=== PATIENT | male | born 1945 | race Caucasian/White ===

== ENCOUNTER → 2021-02-23 10:48 | Outpatient (CLI) | payer OTHER, SELFPAY ==
--- NOTE | ~2021-02-23 | XR_ITS ---
XR hip RT min 2V DATE: 02/23/2021 11:05 INDICATION: Right hip pain TECHNIQUE: AP and lateral views COMPARISON: None FINDINGS: No fracture or dislocation of the right hip. No bone destruction is detected. The right h ip joint space is well preserved. Femoral artery calcification. IMPRESSION: No significant abnormality Reviewed, dictated and finalized at location A. ON SORTER IMPRESSION: No significant abnormality
--- NOTE | ~2021-02-23 | XR_ITS ---
XR chest 2V DATE: 02/23/2021 11:06 INDICATION: Shortness of breath, cough TECHNIQUE: PA and lateral views COMPARISON: 01/03/2019 CT chest 09/23/2018 portable AP chest FINDINGS: Normal heart size. No hilar or mediastinal enlargement. There is aortic calcification. There is bilateral hyperinflation. No pulmonary infiltrate or consolidation, pulmonary vascular osbaldo estion or pleural effusion or pneumothorax. There is degenerative spurring of the thoracic spine. Diffuse osteopenia. IMPRESSION: Bilateral hyperinflation; no active cardiopulmonary disease Reviewed, dictated and finalized at location A. S DRIVER HELPER
== END ==
PROVIDERS: PCP Family Medicine; Visit Provider Family Medicine
DX: R06.02 Shortness of breath (principal); M25.551 Pain in right hip; R91.8 Other nonspecific abnormal finding of lung field
CPT/HCPCS: 71046; 73502

== ENCOUNTER 2021-10-28 15:24 | Outpatient (CLI) | payer OTHER, SELFPAY ==
--- NOTE | ~2021-10-28 | MR_ITS ---
EXAMINATION: MR hip RT wo con DATE: 10/28/2021 16:27 INDICATION: Right hip pain. TECHNIQUE: Magnetic resonance imaging (MRI) of the right hip was performed without intravenous contra st. COMPARISON: Right hip radiographs 02/23/2021 FINDINGS: Bones/cartilage: There is lumbar dextrocurvature and severe spondylosis. No fracture. There is mild osteoarthritis of the hips. Small [id number] images of right hip demonstrate partial-thickness cartilage loss and ti ny osteophytes. Osteitis pubis is noted. Labrum: There is a tear of the right acetabular labrum. Fluid: There are small bilateral hip joint effusions. There is mild right trochanteric bursitis. Soft tissues: The iliopsoas tendons are normal. There are partial tears of the origins of the hamstring tendons haja aterally. There is mild bilateral gluteus minimus tendinopathy. The gluteus medius tendons are normal . IMPRESSION: 1. Mild osteoarthritis of the hips. 2. Small bilateral hip joint effusions. 3. Mild right trochanteric bursitis. 4. Severe lumbar spondylosis. 5. Partial tears of the hamstring origins bilaterally. Reviewed, dictated and finalized at location A.
== END 2021-10-28 15:25 | disposition home or self-care (01) ==
PROVIDERS: PCP Family Medicine; Visit Provider Family Medicine
DX: R53.1 Weakness (principal); M16.0 Bilateral primary osteoarthritis of hip; M25.451 Effusion, right hip; M25.452 Effusion, left hip; M47.896 Other spondylosis, lumbar region; M70.61 Trochanteric bursitis, right hip
CPT/HCPCS: 73721

== ENCOUNTER 2022-10-28 10:27 | Outpatient (CLI) | payer OTHER, SELFPAY ==
[2022-10-28 13:32] LABS: Uric Acid 4.4 mg/dL (3.5-8.5)
== END 2022-10-28 10:28 | disposition home or self-care (01) ==
PROVIDERS: PCP Family Medicine; Visit Provider Nurse Practitioner Family
DX: M10.9 Gout, unspecified (principal)
CPT/HCPCS: 36415; 84550

== ENCOUNTER → 2022-11-07 14:07 | Outpatient (CLI) | payer OTHER, SELFPAY ==
--- NOTE | ~2022-11-07 | XR_ITS ---
EXAMINATION: XR foot RT min 3V DATE: 11/07/2022 14:22 INDICATION: Pain at right first metatarsophalangeal joint. TECHNIQUE: 4 views of right foot were obtained. COMPARISON: None. FINDINGS: Bone alignment is normal. No fracture. There is severe osteoarthritis of first metatarsopha langeal joint and mild osteoarthritis of some of the interphalangeal joints. There is an enthesophyte at plantar aspect of calcaneal tuberosity. IMPRESSION: 1. Polyarticular osteoarthritis. Reviewed, dictated and finalized at location E.
== END ==
PROVIDERS: PCP Family Medicine; Visit Provider Family Medicine
DX: M19.071 Primary osteoarthritis, right ankle and foot (principal)
CPT/HCPCS: 73630

== ENCOUNTER 2022-12-05 10:11 | Outpatient (CLI) | payer OTHER, SELFPAY ==
[2022-12-05 10:40] LABS: Alanine Aminotransferase 42 U/L (6-50); Aspartate Amino Transferase 33 U/L (17-59)
== END 2022-12-05 10:12 | disposition home or self-care (01) ==
PROVIDERS: PCP Family Medicine; Visit Provider Podiatrist Foot & Ankle Surgery
DX: B35.1 Tinea unguium (principal)
CPT/HCPCS: 36415; 84450; 84460

== ENCOUNTER 2024-04-23 11:43 | Emergency (ER) | payer OTHER, SELFPAY ==
--- NOTE | ~2024-04-23 | XR_ITS ---
EXAMINATION: XR chest 2V DATE: 04/23/2024 14:28 INDICATION: Shortness of breath. TECHNIQUE: frontal and lateral views of the chest were obtained. COMPARISON: Chest radiograph dated 02/23/2021 FINDINGS: Surgical clip along the chronically eventrated right hemidiaphragm. There are increased interstitial opacities at the bilateral lung bases which could represent atelectasis, pulmonary edema or pneumonia in the acute setting versus more chronic interstitial lung disease. No pleural effusion or pneumotho rax. Heart size is normal. Moderate thoracic spondylosis with chronic mild anterior wedging of a coup le mid thoracic vertebral bodies. IMPRESSION: 1. Increased interstitial opacities at the bilateral lung bases which could represent atelectasis, mi ld pulmonary edema or pneumonia. Reviewed, dictated and finalized at location B. [employer] IMPRESSION: 1. Increased interstitial opacities at the bilateral lung bases which could rep resent atelectasis, mild pulmonary edema or pneumonia.
[2024-04-23 11:50] VITALS: BP 117/77; PULSE 84; RESP 20; TEMP 36.8; O2SAT 95
--- NOTE | 2024-04-23 11:59 | ECG_ITS ---
Test Date: 2024-04-23 12:03:51 Measurements Intervals [place] Rate: 84 P: 57 RI: 150 QRS: 28 QRSD: 108 T: 73 QT: 354 QTc: 419 Interpretive Statements SINUS RHYTHM No previous ECG available for comparison Electronically Signed On 04-24-2024 11:01:19 MANAGER BUSINESS CONTINUITY by Lio Alexis M.D.
[2024-04-23 12:18] LABS: Basophils Percent Auto 0.2 % (0.2-1.2); Hematocrit 41.1 % (42.0-52.0); Hemoglobin 13.4 g/dL (14.0-18.0); Immature Granulocyte Percent A 0.6 % (0-0.5); Lymphocytes Absolute Auto 1.29 K/mm3 (0.9-3.2); Lymphocytes Percent Auto 7.4 % (18.3-44.2); Mean Corpuscular HGB Conc 32.6 g/dl (32-36); Mean Corpuscular Hemoglobin 29.9 pg (26-34); Mean Corpuscular Volume 91.7 fl (80-100); Mean Platelet Volume 9.7 fl (7.4-10.4); Monocytes Absolute Auto 2.2 K/mm3 (0.1-0.6); Monocytes Percent Auto 12.8 % (2.6-8.5); Neutrophils Absolute Auto 13.9 K/mm3 (1.3-6.7); Platelet Count Result 364 k/mm3 (150-375); Red Blood Count 4.48 M/mm3 (4.6-6.20); Red Cell Distribution Width 14.6 % (11.5-14.5); White Blood Count 17.5 K/mm3 (4.5-10.0)
[2024-04-23 12:23] LABS: Add Urine Microscopic? YES; Appearance Urine Clear (Clear); Bacteria Urine None Seen /hpf; Bilirubin Urine Negative (Negative); Blood Urine Negative (Negative); Color Urine Dark Yellow (Yellow); Glucose Urine UA Negative (Negative); Ketones Urine Trace mg/dL (Negative); Leukocyte Esterase Ur Negative LEU/UL (Negative); Nitrate Urine Negative (Negative); Non Pathogenic Casts 0-2; Protein Urine 1+ mg/dL (Negative); RBC Urine 0-2 /hpf (0-2); Specific Grav Ur 1.025 (1.001-1.035); Squamous Epithelial Cell Urine None Seen /hpf (Few); WBC Urine 0-5 /hpf (0-3); pH Urine 6.5 (5.0-9.0)
[2024-04-23 12:32] LABS: Alanine Aminotransferase 23 U/L (6-50); Alkaline Phosphatase 158 U/L (38-126); Anion Gap 14 mmol/L (4-12); Aspartate Amino Transferase 20 U/L (17-59); Bilirubin,Total 0.7 mg/dL (0.2-1.3); Blood Urea Nitrogen 13 mg/dL (9-20); Calcium 9.4 mg/dL (8.4-10.2); Carbon Dioxide 23 mmol/L (22-30); Chloride 101 mmol/L (98-107); Estimated CRCL calculation 78 ml/min; Estimated Glomerular Filt Rate > 60; Glucose 118 mg/dL (65-110); Potassium 3.8 mmol/L (3.4-5.0); Sodium 138 mmol/L (137-145)
[2024-04-23] MEDS: predniSONE 20 MG TABLET 40 MG PO (12:40)
[2024-04-23] MEDS: ALBUTEROL SULFATE NEB 2.5 MG/3 ML INH 15 MG INHALATION (12:42)
[2024-04-23] MEDS: IPRATROPIUM BR 0.02% INH SOLN 0.5 MG/2.5 ML VIAL 1 MG INHALATION (12:43)
[2024-04-23 12:45] VITALS: PULSE 84; RESP 15
[2024-04-23 12:53] LABS: Influenza A QL RT-PCR Negative (Negative); Influenza B QL RT-PCR Negative (Negative); RSV RNA, RT-PCR Negative (Negative); SARS-CoV-2 RNA PCR Negative (Negative)
--- NOTE | 2024-04-23 13:10 | ED_ITS ---
HPI - URI/Sore Throat General Chief Complaint: Upper Respiratory Infection Stated Complaint: i'm sick x 3 weeks Time Seen by Provider: 04/23/24 11:58 History of Present Illness HPI Narrative: Patient has been feeling sick for last few weeks, he does have a history of COPD, hypertension, diabetes, has been using his inhaler at home, his family member has also been sick. Mostly shortness of breath with generalized fatigue Related Data Allergies Allergy/AdvReac Type Severity Reaction Status Date / Time No Known Allergies Allergy Verified 04/23/24 11:54 Review of Systems 2 Review of Systems: All systems reviewed & are unremarkable except as noted in HPI and below PMFSH Past Medical History Medical History Former smoker, stopped smoking in distant past Dysuria Skin infection Uncomplicated alcohol dependence Toxic hepatitis Nicotine dependence Hyperlipidemia Essential hypertension Type 2 diabetes mellitus Derangement of knee Alcohol dependence Surgical History Surgical History H/O umbilical hernia repair Status post total left knee replacement Family History Family History Father Family history of malignant neoplasm Sibling Acute myocardial infarction Social History Social History Smoking status: Former smoker Smoking end date: 02/21/12 Alcohol intake: current Lack of Transportation: No Lack of Food: Never True Current Housing: I Have Housing Concerned About Future Housing: No Difficulty Paying Gas/Electric Bills: No Difficulty Paying for Meds: No Currently Unemployed: No Education: High School Diploma/GED Difficulty w/ Childcare or Family Care: No Exam 2 Narrative: EXAMINATION OF ORGAN SYSTEMS/BODY AREAS: Constitutional: Vital signs per nursing GENERAL:[No acute distress, non-toxic appearing.] HEAD: Normal with no signs of head trauma. EYES: EOMI, conjunctiva normal ENT: Hearing grossly intact LUNGS: Nonlabored breathing. Wheezing all lung [place] HEART: [Regular rate and rhythm] ABD: [Soft], [nontender to palpation] EXT: Normal range of motion SKIN: [No rashes or lesions.] NEURO: [Alert and oriented x 3. No gross focal sensory or strength deficits.] PSYCH: Normal affect Course Vital Signs Vital signs: Vital Signs Temperature 98.2 F 04/23/24 11:50 Pulse Rate 84 04/23/24 11:50 Respiratory Rate 20 04/23/24 11:50 Blood Pressure 117/77 04/23/24 11:50 Pulse Oximetry 95 04/23/24 11:50 Oxygen Delivery Room Air 04/23/24 11:50 Temperature 98.2 F 04/23/24 11:50 Pulse Rate 90 04/23/24 15:16 Respiratory Rate 20 04/23/24 15:16 Blood Pressure 117/77 04/23/24 11:50 Pulse Oximetry 95 04/23/24 15:16 Oxygen Delivery Room Air 04/23/24 12:14 MDM - URI/Sore Throat MDM Narrative Medical decision making narrative: 1) Differential diagnosis: Viral infection, pneumonia, COPD exacerbation 2) Comorbidities: COPD, hypertension, diabetes, lung cancer 3) External notes reviewed: PCP notes 4) History sources independently obtained from: Family member at bedside 5) Discussion of management with: 6) Independent interpretation of: EKG shows normal sinus rhythm rate 84, normal ND, QRS, QTC, normal axis, no ST elevations or depressions or obvious signs of acute arrhythmia or ischemia Chest x-ray was some slight consolidations right lung base 7) Diagnostic tests or therapies considered but not ordered: 8) Social determinants of health: 9) Shared decision makin-year-old presenting with some shortness of breath, cough, generalized fatigue; infectious workup initiated, he does have elevated wbc's, virus was negative, chest x-ray showing possible pneumonia, he is given breathing treatments and on re-evaluation states he feels much better. Repeat vital signs improved. Breathing improved. I did offer admission at this time he would like to go home. Started on antibiotics and given strict precautions, follow-up to his PCP. Family member at bedside agreeable to plan also Lab Data 04/23/24 12:11 04/23/24 12:11 Labs: Lab Results 04/23/24 Range/Units 12:11 WBC 17.5 H (4.5-10.0) K/mm3 RBC 4.48 L (4.6-6.20) M/mm3 Hgb 13.4 L (14.0-18.0) g/dL Hct 41.1 L (42.0-52.0) % MCV 91.7 (80-100) fl MCH 29.9 (26-34) pg MCHC 32.6 (32-36) g/dl RDW 14.6 H (11.5-14.5) % Plt Count 364 (150-375) k/mm3 MPV 9.7 (7.4-10.4) fl Immature Gran % (Auto) 0.6 H (0-0.5) % Neut % (Auto) 79.0 H (45.5-73.1) % Lymph % (Auto) 7.4 L (18.3-44.2) % [place] % (Auto) 12.8 H (2.6-8.5) % Eos % (Auto) 0.0 (0-4.4) % Baso % (Auto) 0.2 (0.2-1.2) % Lymph # (Auto) 1.29 (0.9-3.2) K/mm3 [place] # (Auto) 2.2 H (0.1-0.6) K/mm3 Eos # (Auto) 0.0 (0-0.3) K/mm3 Baso # (Auto) 0.0 (0.0-0.1) K/mm3 Abs Immat Gran (auto) 0.10 H (0.00-0.031) K/mm3 Absolute Neuts (auto) 13.9 H (1.3-6.7) K/mm3 Absolute Nucleated RBC 0.000 (0.0-0.012) K/mm3 Nucleated RBC % 0.0 (0.0-0.2) % Sodium 138 (137-145) mmol/L Potassium 3.8 (3.4-5.0) mmol/L Chloride 101 (98-107) mmol/L Carbon Dioxide 23 (22-30) mmol/L Anion Gap 14 H (4-12) mmol/L BUN 13 (9-20) mg/dL Creatinine 0.65 L (0.7-1.3) mg/dL Estim Creat Clear Calc 78 ml/min Estimated GFR > 60 (59 - ) Glucose 118 H (65-110) mg/dL Calcium 9.4 (8.4-10.2) mg/dL Total Bilirubin 0.7 (0.2-1.3) mg/dL AST 20 (17-59) U/L ALT 23 (6-50) U/L Alkaline Phosphatase 158 H (38-126) U/L Total Protein 8.0 (6.3-8.2) g/dL Albumin 4.0 (3.5-5.1) g/dL Urine Color Dark yellow (Yellow) Urine Appearance Clear (Clear) Urine pH 6.5 (5.0-9.0) Ur Specific [place] 1.025 (1.001-1.035) Urine Protein 1+ H (Negative) mg/dL Urine Glucose (UA) Negative (Negative) mg/dL Urine Ketones Trace H (Negative) mg/dL Ur Blood (Man) Negative (Negative) Urine Nitrate Negative (Negative) Urine Bilirubin Negative (Negative) Urine Urobilinogen 1.0 (<2.0) mg/dL Leukocyte Esterase Rfl Negative (Negative) AZEB/UL Urine RBC 0-2 (0-2) /hpf Urine WBC 0-5 (0-3) /hpf Ur Squamous Epith Cells None seen (Few) /hpf Urine Bacteria None seen /hpf Urine Casts 0-2 Influenza A (RT-PCR) Negative (Negative) Influenza B (RT-PCR) Negative (Negative) RSV (RT-PCR) Negative (Negative) SARS-CoV-2 RNA (RT-PCR) Negative (Negative) Discharge Plan Discharge Clinical Impression: Acute bronchitis, Pneumonia Patient Disposition: Home, Self-Care Condition: Stable Instructions: Antibiotic Form, Acute Bronchitis (ED) Additional Instructions: Please take medications as prescribed, and follow up with your doctor; please come back to the hospital if your symptoms do not improve or if they get worse. Patient Language: Barbadian Prescriptions: New doxycycline hyclate 100 mg capsule 100 mg PO Q12H 7 Days Qty: 10 0RF albuterol sulfate 90 mcg/actuation HFA aerosol inhaler 2 puff inhalation QID PRN (Reason: shortness of breath or wheezing) Qty: 8.5 0RF amoxicillin-pot clavulanate 875-125 mg tablet 1 tablet PO Q12H Qty: 10 0RF No Action insulin glargine [Lantus Solostar U-100 Insulin] 100 unit/mL (3 mL) insulin pen 18 unit SUB-Q DAILY Qty: 15 3RF atorvastatin 40 mg tablet 40 mg PO DAILY Qty: 90 2RF lisinopril 10 mg tablet 10 mg PO DAILY Qty: 90 2RF metformin 1,000 mg tablet 1,000 mg PO BID Qty: 180 2RF metoprolol tartrate 50 mg tablet 50 mg PO DAILY Qty: 90 2RF (DME) pen needle, diabetic [1st Tier Unifine Pentips] 32 gauge x / needle See Rx Instructions .ROUTE .MEDSUPPLY Qty: 100 2RF Rx Instructions: Use 1 needle with Flexpen to inject insulin every evening pioglitazone 30 mg tablet 30 mg PO DAILY Qty: 90 2RF Rx Instructions: take 1 tablet by mouth once daily (DME) Contour Next Test Strips Strip See Rx Instructions .ROUTE .MEDSUPPLY Qty: 100 4RF Rx Instructions: Use 1 test strip to check fasting glucose daily albuterol sulfate [ProAir HFA] 90 mcg/actuation HFA aerosol inhaler 2 puff INHALATION Q4H Qty: 25.5 4RF fluticasone propion-salmeterol [Wixela Inhub] 250-50 mcg/dose blister with device 1 inh inhalation BID Qty: 60 5RF cholecalciferol (vitamin D3) 100 mcg (4,000 unit) tablet 100 mcg PO DAILY Qty: 90 2RF Follow-up/Referrals: Josué Cary MD [Primary Care Provider] - 2 Days
--- OUTSIDE RECORDS SUMMARY | 2024-04-23 13:36 | XMS_ITS | Clinical Summary ---
Author Organization [facility] Address [address] [address] Care Team Providers Care News Specialist Name Role Phone Lonnie Huerta Primary Care Provider [phone] Source Comments [facility],non-owned Affiliates and Associated Physician Practices is amultiple site organization consisting of ambulatory clinics and hospital sitesin [place], [place], [place] and [place]. This disclosure is being madepursuant to the Care Everywhere program and may not contain all information available regarding this patient. Last updated 17.[facility] Allergies No known active allergies Medications * Be aware that medications may not be up to date on this document. Alwaysverify current medications with the patient. Medication Sig Dispensed Refills Start Date End Date Status metFORMIN (GLUCOPHAGE) 1000 MG tablet Take 1 (one) tablet by mouth 2 times daily with morning and evening meal Active pioglitazone (ACTOS) 30 MG tablet Take 1 (one) tablet by mouth once daily Active lisinopril (PRINIVIL; ZESTRIL) 10 MG tablet Take 1 (one) tablet by mouth once daily Active METOPROLOL-HCTZ 50-25 MG Take by mouth once daily Active atorvastatin (LIPITOR) 40 MG tablet Take 1 (one) tablet by mouth at bedtime Active [place]-3 Fatty Acids (FISH OIL) 1200 MG Take by mouth 2 times daily Active vitamin C (ASCORBIC ACID) 1000 MG tablet Take 1 (one) tablet by mouth once daily Active Cyanocobalamin (VITAMIN B-12) 5000 MCG TBDP Take by mouth once daily Active LANTUS SOLOSTAR pen 18 (eighteen) Units at bedtime Now called Semglee 05/31/2019 Active albuterol HFA (PROVENTIL;VENTOLIN;[place] OAIR) 108 (90 Base) MCG/ACT inhaler every 6 hours as needed 11/25/2019 Active fluticasone-salmeterol (ADVAIR/WIXELA) 250-50 MCG/DOSE inhaler Inhale 1 (one) puff by mouth 2 times daily 60 Each 5 04/14/2021 Active ciclopirox (PENLAC) 8 % solution as needed 09/09/2021 Active Acetaminophen (TYLENOL ARTHRITIS PAIN PO) Take by mouth 2 times daily Active Active Problems Problem Noted Date Diagnosed Date COPD with exacerbation 05/10/2019 Malignant neoplasm of lower lobe of right lung 0 09/25/2018 Former smoker, stopped smoking in distant past 0 08/01/2018 Essential hypertension 03/03/2015 Other hyperlipidemia 03/03/2015 Diabetes mellitus, type 2 03/03/2015 Immunizations Name Administration Dates Next Due City Voice primary monoval ent 12+ yr 0.3mL Purple cap 11/15/2020,08/20/2020,04/20/2020, 021 INFLUENZA VACCINE 10/30/2020,10/30/2017 INFLUENZA VACCINE, HIGH-DOSE , QUADR. (FLUZONE HIGH-DOSE QUADRIVALENT; 65Y+), 0.7 ML (HD-IIV4) 10/17/2019 INFLUENZA VACCINE, QUADR. (A FLURIA, FLUZONE QUADRIVALENT; 6MO+) (IIV4) 11/05/2018 Social History Tobacco Use Types Packs/Day Years Used Date Smoking Tobacco: Former Smokeless Tobacco: Never Tobacco Cessation:Counseling Given: No Alcohol Use Standard Drinks/Week Comments Yes 0 (1 standard drink = 0.6 oz pur e alcohol) AUDIT-C Answer Date Recorded Frequency of Alcohol Consumption Monthly or less 05/10/2019 Average Number of Drinks 1 or 2 020 Frequency of Binge Drinking Not on file 04/21 Sex and Gender Information Value Date Recorded Sex Assigned at Male 04/02/2020 9:51 AM SOFTWARE DEVELOPMENT ADVISOR Gender Identity Male 04/02/2020 9:51 AM SOFTWARE DEVELOPMENT ADVISOR Sexual Orientation Straight 04/02/2020 9: 51 AM SOFTWARE DEVELOPMENT ADVISOR Last Filed Vital Signs Vital Sign Reading Time Taken Comments Blood Pressure 147/85 09/28/2023 2:29 PM CDT Pulse 64 09/28/2023 2:29 PM CDT Temperature 36.3 C (97.3 F) 09/28/2023 2:29 PM CDT Respiratory Rate 18 09/28/2023 2:29 PM CDT Oxygen Saturation 96% 09/28/2023 2:29 PM CDT Inhaled Oxygen Concentration - - Weight 87.7 kg (193 lb 6.4 oz) 09/28/2023 2:29 P M CDT Height 175.3 cm (5' 9 ) 05/10/2019 10:07 AM CDT Body Mass Index 28.56 05/10/2019 10:07 AM CDT Plan of Treatment Upcoming Encounters Date Type Department Care Team (Late st Contact Info) Description 06/26/2024 1:00 PM CDT Appointment [facility] CAT SCAN [address] [place] [address] Branden Navas MD [address] [place] [phone] 07/01/2024 1:00 PM CDT Appointment [facility] RAD ONC [address] [place] [address] Branden Navas MD [facility] [place], [place] [phone] Health Maintenance Due Date Last Done Comments DIABETES-SERUM CREATININE 12/15/1961 DTAP/TDAP/TD VACCINES (1 - Tdap) 12/15/1962 PNEUMOCOCCAL VACCINE 50+ (1 of 2 - PCV) 12/15/1962 ZOSTER VACCINE (1 of 2) 12/15/1993 Respiratory Syncytial Virus (RSV) Vaccine Pt: or over 60 yrs (1 - 1-dose 75+ series) 12/15/2018 DIABETES RETINOPATHY SCREENING 05/10/2019 DIABETES-FOOT EXAM WITH MONOFILAMENT 05/10/2019 DIABETES-HGB A1C 05/10/2019 COVID-19 VACCINE ( season) 2023 05/20/2021, 11/15/2020, 08/20/2020, Additional history exists INFLUENZA VACCINE (#1) 2023 , 10/17/2019, 11/05/2018, Additional history exists DEPRESSION SCREENING 02/21/2024 DIABETES - URINE PROTEIN SCREENING 02/21/2024 MEDICARE AWV CALENDAR YEAR 2024 HEPATITIS B VACCINE Aged Out No longe r eligible based on patient's age to complete this topic HIB VACCINE Aged Out No longer eligi ble based on patient's age to complete this topic HPV VACCINE Aged Out No longer eligi ble based on patient's age to complete this topic MENINGOCOCCAL (Group B) VACCINE Aged Out No longer eligible based on patient's age to complete this topic MENINGOCOCCAL VACCINE Aged Out No gonzalo hollis eligible based on patient's age to complete this topic Medical Devices Implanted Type Area Indian Trader Device Identifier Shelf Expiration Date Model / Serial / Lot Pointcoil Implanted:Qty: 1 on 04/17/2019 at [facility] [id number] / / Care Teams News Specialist Relationship Specialty Start Date End Date Lonnie Huerta DO [address] [place] [phone] PCP - General Family Medicine 09/13/22
--- OUTSIDE RECORDS SUMMARY | 2024-04-23 13:36 | XMS_ITS | Referral Summary ---
Author Organization [facility] Address [address] [place] [address] Care Team Providers Care Facilities Plant Engineer Name Role Phone Lonnie Huerta Primary Care Provider [phone] Source Comments [facility],non-owned Affiliates and Associated Physician Practices is amultiple site organization consisting of ambulatory clinics and hospital sitesin [place], [place], [place] and [place]. This disclosure is being madepursuant to the Care Everywhere program and may not contain all information available regarding this patient. Last updated 17.[facility] Allergies No known active allergies Medications * [...] (one) tablet by mouth at bedtime Active [place]-3 Fatty Acids (FISH OIL) 1200 MG Take by mouth 2 times daily Active vitamin C (ASCORBIC ACID) 1000 MG tablet Take 1 (one) tablet by mouth once daily Active Cyanocobalamin (VITAMIN B-12) 5000 MCG TBDP Take by mouth once daily Active LANTUS SOLOSTAR pen 18 (eighteen) Units at bedtime Now called Semglee 05/31/2019 Active albuterol HFA (PROVENTIL;VENTOLIN;[place] OAIR) 108 (90 Base) MCG/ACT inhaler every [...] 03/03/2015 Immunizations Name Administration Dates Next Due [employer] primary monoval ent 12+ yr 0.3mL Purple [...] Sex Assigned at Male 04/02/2020 9:51 AM ELECTRIC MOTOR ANALYST Gender Identity Male 04/02/2020 9:51 AM ELECTRIC MOTOR ANALYST Sexual Orientation Straight 04/02/2020 9: 51 AM ELECTRIC MOTOR ANALYST Last Filed Vital Signs Vital Sign Reading [...] Info) Description 06/26/2024 1:00 PM CDT Appointment [facility] CAT SCAN [address] [place] [address] Branden Navas MD [address] [place] [phone] 07/01/2024 1:00 PM CDT Appointment [facility] RAD ONC [address] [place] [address] Branden Navas MD [facility] [place], [place] [phone] Medical Devices Implanted Type Area Director Of Residential Services Device Identifier Shelf Expiration Date Model / Serial / Lot Pointcoil Implanted:Qty: 1 on 04/17/2019 at [facility] [id number] / / Care Teams Facilities Plant Engineer Relationship Specialty Start Date End Date Lonnie Huerta DO [address] [place] [phone] PCP - General Family Medicine 09/13/22
--- OUTSIDE RECORDS SUMMARY | 2024-04-23 13:36 | XMS_ITS | Encounter Summary ---
Author Organization [facility] Address [address] [place] [address] Care Team Providers Care Hot Metal Mixer Operator Name Role Phone Emerson Jaramillo MD Primary Care Provider [phone] Lonnie Huerta DO Primary Care Provider [phone] Encounter Details Date Type Department Care Team (Late st Contact Info) Description 03/11/2019 Telephone [facility] [address] [place] [address] Tommy Corrigan MD [address] OF PULMONARY/[place] [address] Social History Tobacco Use Types Packs/Day Years Used Date Smoking Tobacco: Never Assessed Sex and Gender Information Value Date Recorded Sex Assigned at Male 04/02/2020 9:51 AM GAS LINE REPAIRER Gender Identity Male 04/02/2020 9:51 AM GAS LINE REPAIRER Sexual Orientation Straight 04/02/2020 9: 51 AM GAS LINE REPAIRER documented as of this encounter Miscellaneous Notes * Telephone Encounter - Shanta Epps - 03/11/2019 10:00 AM CST Current Provider name:Dr. Tommy Corrigan Reason for call: Mr. Willis missed 03/08/2019 appt due to inclement weather. He has lung nodules and is concerne. Would really like earlier appt that schedule 04/12/2019 at 9AM. Please call if possible. Patient Call Back number: [phone] LINE REPAIRER documented in this encounter Plan of Treatment Upcoming Encounters Date Type Department Care Team (Late st Contact Info) Description 06/26/2024 1:00 PM CDT Appointment [facility] CAT SCAN [address] [place] [address] Branden Navas MD [address] [place], [place] [phone] 07/01/2024 1:00 PM CDT Appointment [facility] RAD ONC [address] [place] [address] Branden Navas MD [facility] [place], [place] [phone] documented as of this encounter Visit Diagnoses Not on filedocumented in this encounter Care Teams Hot Metal Mixer Operator Relationship Specialty Start Date End Date Emerson Jaramillo MD [address] [place] [address] PCP - General 02/22/19 09/12/22 Lonnie Huerta DO [address] [place] [address] PCP - General Family Medicine 09/13/22 documented as of this encounter
--- OUTSIDE RECORDS SUMMARY | 2024-04-23 13:37 | XMS_ITS ---
Author Organization [facility] Address [address] [place] [address] Care Team Providers Care Presto Log Operator Name Role Phone Lonnie Huerta Primary Care Provider [phone] Active Problems Problem Noted Date Diagnosed Date COPD with exacerbation 05/10/2019 Malignant neoplasm of lower lobe of right lung 0 09/25/2018 Former smoker, stopped smoking in distant past 0 08/01/2018 Essential hypertension 03/03/2015 Other hyperlipidemia 03/03/2015 Diabetes mellitus, type 2 03/03/2015 Current Oncology Plans No current plan information found. Past Plans No past plan information found. Radiation Treatments * No radiation treatments are documented for this patient in [facility]. Treatments may have been administered in another system. Lifetime Dose Tracking * Chemical Lifetime Dose Automatic Entry Manual Entr y Dose Length Product 3,478 mGy-cm 3,478 mGy-cm 0 mGy-cm
--- OUTSIDE RECORDS SUMMARY | 2024-04-23 13:37 | XMS_ITS | Patient Health Summary ---
Author Organization [facility] Address [address] [place] [address] Care Team Providers Care Betting Clerk Name Role Phone Lonnie Huerta Primary Care Provider [phone] Note from [facility] [place],non-owned Affiliates and Associated Physician Practices is amultiple site organization consisting of ambulatory clinics and hospital sitesin [place], [place], [place] and [place]. This disclosure is being madepursuant to the Care Everywhere program and may not contain all information available regarding this patient. Last updated 17.[facility] Allergies No known active allergies Medications * Be aware that medications may not be up to date on this document. Alwaysverify current medications with the patient. * metFORMIN (GLUCOPHAGE) 1000 MG tablet Take 1 (one) tablet by mouth 2 times daily with morning and evening meal * pioglitazone (ACTOS) 30 MG tablet Take 1 (one) tablet by mouth once daily * lisinopril (PRINIVIL; ZESTRIL) 10 MG tablet Take 1 (one) tablet by mouth once daily * METOPROLOL-HCTZ 50-25 MG Take by mouth once daily * atorvastatin (LIPITOR) 40 MG tablet Take 1 (one) tablet by mouth at bedtime * Rosie-3 Fatty Acids (FISH OIL) 1200 MG Take by mouth 2 times daily * vitamin C (ASCORBIC ACID) 1000 MG tablet Take 1 (one) tablet by mouth once daily * Cyanocobalamin (VITAMIN B-12) 5000 MCG TBDP Take by mouth once daily * LANTUS SOLOSTAR pen(Started 05/31/2019) 18 (eighteen) Units at bedtime Now called Semglee * albuterol HFA (PROVENTIL;VENTOLIN;PROAIR) 108 (90 Base) MCG/ACT inhaler (Started 11/25/2019) every 6 hours as needed * fluticasone-salmeterol (ADVAIR/WIXELA) 250-50 MCG/DOSE inhaler(Started 04/14/2021) Inhale 1 (one) puff by mouth 2 times daily 5 refills by 04/14/2022 * ciclopirox (PENLAC) 8 % solution(Started 09/09/2021) as needed * Acetaminophen (TYLENOL ARTHRITIS PAIN PO) Take by mouth 2 times daily Active Problems Problem Noted Date Diagnosed Date COPD with exacerbation 05/10/2019 Malignant neoplasm of lower lobe of right lung 0 09/25/2018 Former smoker, stopped smoking in distant past 0 08/01/2018 Essential hypertension 03/03/2015 Other hyperlipidemia 03/03/2015 Diabetes mellitus, type 2 03/03/2015 Immunizations * [employer] primary monovalent 12+ yr 0.3mL Purple cap(Given 11/15/2020, 08/20/2020, 04/20/2020, 04/02/2020) * INFLUENZA VACCINE(Given 10/30/2020, 10/30/2017) * INFLUENZA VACCINE, HIGH-DOSE, QUADR. (FLUZONE HIGH-DOSE QUADRIVALENT; 65Y+), 0.7 ML (HD-IIV4)(Given 10/17/2019) * INFLUENZA VACCINE, QUADR. 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 [id number] / / Procedures * CT CHEST WO CONTRAST(Performed 09/19/2023) Performed for Malignant neoplasm of lower lobe of right lung (HCC) * CT CHEST WO CONTRAST(Performed 03/23/2023) Performed for Malignant neoplasm of lower lobe of right lung (HCC) * CT CHEST WO CONTRAST(Performed 09/12/2022) Performed for Malignant neoplasm of lower lobe of right lung (HCC) * CT CHEST WO CONTRAST(Performed 09/09/2021) Performed for Malignant neoplasm of lower lobe of right lung (HCC) * CT CHEST WO CONTRAST(Performed 03/11/2021) Performed for Malignant neoplasm of lower lobe of right lung (HCC) * CT CHEST WO CONTRAST(Performed 09/01/2020) Performed for Malignant neoplasm of lower lobe of right lung (HCC) * CT CHEST WO CONTRAST(Performed 04/03/2020) Performed for Malignant neoplasm of lower lobe of right lung (HCC) * CT CHEST WO CONTRAST(Performed 12/03/2019) Performed for Malignant neoplasm of lower lobe of right lung (HCC) * PFT CARDIOPULMONARY EXERCISE TEST-CPET(Performed 05/09/2019) Performed for Malignant neoplasm of lower lobe of right lung (HCC) * BLOOD GASES ART - PFT(Performed 05/02/2019) Performed for Malignant neoplasm of lower lobe of right lung (HCC) * SHUTTLE WALK TEST(Performed 05/02/2019) Performed for Malignant neoplasm of lower lobe of right lung (HCC) * COMPLETE PFT W/WO BRONCHODILATOR(Performed 05/02/2019) Performed for Malignant neoplasm of lower lobe of right lung (HCC) * XR CHEST 2VW INSPIR EXPIRATION(Performed 04/17/2019) Performed for Lung mass, Lung nodule * XR CHEST 2VW INSPIR EXPIRATION(Performed 04/17/2019) Performed for Lung mass, Lung nodule * XR CHEST 2VW INSPIR EXPIRATION(Performed 04/17/2019) Performed for Lung mass, Lung nodule * CT FIDUCIAL MARKER PLACEMENT(Performed 04/17/2019) Performed for Lung nodule * CT GUIDED NEEDLE PLACEMENT(Performed 04/17/2019) Performed for Lung nodule * PATHOLOGY TISSUE(Performed 04/17/2019) Performed for Lung mass, Lung nodule * PT-INR [facility](Performed 04/17/2019) Performed for Lung mass * CBC W AUTO DIFFERENTIAL(Performed 04/17/2019) Performed for Lung mass Results * CT CHEST WO CONTRAST (09/19/2023 10:08 AM CDT) Only the most recent of8 resultswithin the time period is included. Anatomical Region Laterality Modality Chest Computed Tomogra phy 09/19/2023 1:31 PM CDT Impressions 09/20/2023 12:27 AM CDT Impression: 1.The previously noted focal area of scarring at the superior aspect of the right lower lobe is stable/less prominent when compared to the prior exam. 2.Interval scarring of previously noted nodule in the right upper lobe. 3.No new suspicious pulmonary nodules. > Dictated by Sky Bill MD (president sales and marketing). I, Bogdan Beard MD have personally reviewed and interpreted this examination/study. > Interpreting Provider: Bogdan Beard MD on 09/20/2023 12:27 AM Narrative 09/20/2023 12:27 AM CDT PROCEDURE: CT CHEST WO CONTRAST, DATE/TIME OF EXAM: 09/19/2023 10:09 AM, LOCATION [facility] INDICATION: C34.31: Malignant neoplasm of lower lobe of right lung (HCC) ADDITIONAL CLINICAL INFORMATION: Ordering Provider Reason For Exam: eval for recurrence and opacity changes COMPARISON: CT of the chest 03/23/2023 TECHNIQUE: CT of the chest was performed without contrast according to standard protocol. Findings: Evaluation of visceral and vascular structures is degraded due to lack of intravenous contrast administration. Lower Neck and Axillae: Normal. Lungs: Emphysematous changes in the lungs. No pleural fluid or pneumothorax is present. Pulmonary nodules: *Redemonstration of an area of scarring in the right lower lobe which is stable to less prominent when compared to the prior examination (series 4 image 39). *Previously noted nodule in the right upper lobe has decreased in size with mild residual scarring (series 4 image 27) *Unchanged calcified perifissural lymph node in the left lower lobe (series 4 image 57). *No new suspicious pulmonary nodules. Heart and Pericardium: The cardiac chambers are normal in size. No pericardial fluid or thickening is present. The coronary arteries are atherosclerotic. Mediastinum and Lula: Non enlarged, calcified mediastinal and hilar lymph nodes. Thoracic Vasculature: The aorta and its branch vessels are atherosclerotic. Bones and Chest Wall: Bone windows demonstrate no suspicious lytic or blastic lesions. Degenerative changes in the spine with unchanged mild wedging of the T8 vertebral body. Upper Abdomen: Unchanged appearance of a 1 cm left adrenal nodule measuring -19HU, favored to represent an adenoma. Partially visualized appearance of a cyst in the left kidney. The abdomen is otherwise unremarkable. Procedure Note Bogdan Beard MD - 09/20/2023 PROCEDURE: CT CHEST WO CONTRAST, DATE/TIME OF EXAM: 09/19/2023 10:09AM, LOCATION [facility] INDICATION: C34.31: Malignant neoplasm of lower lobe of right lung (HCC) ADDITIONAL CLINICAL INFORMATION: Ordering Provider Reason For Exam: eval for recurrence and opacitychanges COMPARISON: CT of the chest 03/23/2023 TECHNIQUE: CT of the chest was performed without contrast according to standard protocol. Findings: Evaluation of visceral and vascular structures is degraded due to lackof intravenous contrast administration. Lower Neck and Axillae: Normal. Lungs: Emphysematous changes in the lungs. No pleural fluid or pneumothorax is present. Pulmonary nodules: *Redemonstration of an area of scarring in the right lower lobe which is stable to less prominent when compared to the prior examination (series4 image 39). *Previously noted nodule in the right upper lobe has decreased in sizewith mild residual scarring (series 4 image 27) *Unchanged calcified perifissural lymph node in the left lower lobe(series 4 image 57). *No new suspicious pulmonary nodules. Heart and Pericardium: The cardiac chambers are normal in size. No pericardial fluid orthickening is present. The coronary arteries are atherosclerotic. Mediastinum and Lula: Non enlarged, calcified mediastinal and hilar lymph nodes. Thoracic Vasculature: The aorta and its branch vessels are atherosclerotic. Bones and Chest Wall: Bone windows demonstrate no suspicious lytic or blastic lesions. Degenerative changes in the spine with unchanged mild wedging of the T8 vertebral body. Upper Abdomen: Unchanged appearance of a 1 cm left adrenal nodule measuring -19HU,favored to represent an adenoma. Partially visualized appearance of a cyst inthe left kidney. The abdomen is otherwise unremarkable. Impression: 1.The previously noted focal area of scarring at the superior aspect ofthe right lower lobe is stable/less prominent when compared to the priorexam. 2.Interval scarring of previously noted nodule in the right upper lobe. 3.No new suspicious pulmonary nodules. > Dictated by Sky Bill MD (president sales and marketing). I, Bogdan Beard MD have personally reviewed and interpreted this examination/study. > Interpreting Provider: Bogdan Beard MD on 412:27 AM Branden Navas MD CT ORDERABLES * PFT CARDIOPULMONARY EXERCISE TEST-CPET (05/09/2019 10:00 AM CDT) Impressions Micah Rice MD - 05/09/2019 10:00 AM CDT HISTORY Armin Willis is a 73 year old year old male undergoing cardiopulmonary exercise testing for evaluation of pre-op work-up. His height is 173 cm and weight 96 kg, with BMI of 32.2. The exercise test was performed on a treadmill, using a Maged protocol. The patient tolerated a maximum workload of 2 mph at 7.0% grade, exercising for a total of 5:45 minutes while breathing FiO2 21%. The patient's reason for stopping was severe fatigue. HEMODYNAMICS At resting, HR was 66 bpm, blood pressure 142/80, O2 pulse 5 mL/beat and EKG showed sinus rhythm. The peak HR was 108 bpm (74 % of predicted at peak workload), blood pressure 158/94, O2 pulse 12.5 mL/beat and EKG during exertion showed sinus tachycardia. Heart rate reserve is 37 bpm. (Normal < 15 bmp) VENTILATION & GAS EXCHANGE The patient's breath rate was 17 per minute with a minute ventilation of 13.8 L/min at rest. The breath rate increased to 28 per minute with a minute ventilation of 44.1 L/min at peak exercise. The peak ventilation was 74% of predicted maximal ventilation. Pulse oximetry showed oxygen saturation of 99% on 21% O2 at rest and 99% on 21% O2 at peak exercise. VO2 was 14.0 ml/kg/min, 55% of predicted. There is moderate aerobic functional impairment. Anaerobic threshold occurred at 3:49 minutes of exercise, at 52.5% of predicted peak VO2, which was when expected. The AT-VO2 was 91%. The R value was 0.97 at peak exercise, suggesting submaximal effort. The Vd/Vt ratio was 38% at rest and decreased to 28% at peak exercise, which is above normal. The ventilatory reserve was 15.9 L (normal > 11L). Ventilatory efficiency (VE/VCO2 at AT) was equal to 34 (normal < 34). Tidal loops impinged on the flow volume loops. BLOOD GASES Not performed NINE PANEL GRAPHS: NINE-PANEL GRAPHS Panel 1, VE vs. WR: showed an upsloping curvilinear relationship. Panel 2, HR & VO2/HR vs. WR: HR vs. WR showed a linear relationship. O2 pulse vs. WR showed an upsloping linear relationship Panel 3, VO2 & VCO2 Vs. WR: both graphs show an upsloping curvilinear relationship. Panel 4, VE vs. VCO2: showed an upsloping linear relationship until onset of respiratory compensation for lactic acidosis at the end of exercise, at which point the slope increases. Panel 5, HR & VCO2 vs. VO2: HR/VO2 showed an upsloping linear relationship. VCO2/VO2 had a slope of until AT, at which point the slope became steeper Panel 6, VE/CO2 & VE/VO2 vs. WR: Both plots were curvilinear; VE/VO2 did reach a bucky at AT <28, and VE/VCO2 reached a bucky at the respiratory compensation point with a value of normal value <32. Panel 7, Vt vs. VE: A curvilinear relationship that did plateau at approximately 60% of VC. Panel 8, RER vs. WR: Was generally a linear relationship with maximal value of 0.97 (>1.1 if patient gave good effort.) Panel 9, PETO2 & PETCO2 vs. WR: Bucky of PETO2 and peak of PETCO2 were at AT. IMPRESSION Suboptimal study but the available data is interpreted below. 1. This patient has moderate functional aerobic impairment. 2. The impairment is likely secondary to a ventilatory limitation. Patient has a known diagnosis of moderate COPD with FEV1 of 53% on recent PFT. 3. The VO2 was 14.0 ml/kg/min. The VE/VCO2 was 34. Therefore, this patient is at low to intermediate risk for resection of lung. The Thoracic Revised Cardiac Risk Index for this patient = 0 based on available data in the chart. Preliminary results were discussed with Dr. Montenegro on 05/10/19 at 11:43am. Mary Herzog MD (Fellow) Division of Pulmonary, Critical Care, & Sleep Medicine [facility] I have personally reviewed the test and agreed with the interpretation. Micah Rice M.D., [facility]. Camilo Godinez and Sandy Lewis Endowed Chair in Internal Medicine Professor and Interim Sail Cutter of Internal Medicine Director, Division of Pulmonary, Critical Care and Sleep Medicine Director, Adult CF Program [facility] Narrative Miach Rice MD - 05/09/2019 10:00 AM CDT Mora Herzog MD 05/10/2019 9:23 PM Procedure Note Mora Herzog MD - 05/09/2019 10:00 AM CDT Images from the original note were not included. Tommy Corrigan MD PFT ORDERABLES * (ABNORMAL) PFT BLOOD GASES ARTERIAL (05/02/2019 11:04 AM CDT) pH Arterial 7.40 7.20 - 7.60 05/02/2019 1:29 PM CDT [facility] pCO2 Arterial 40 35 - 45 mmHg 05/02/2019 1:29 PM CDT [facility] pO2 Arterial 66(L) 71 - 95 mmHg 05/02/2019 1:29 PM CDT [facility] HCO3 Arterial 24.0 22.0 - 26.0 mmol/L 05/02/2019 1:29 PM CDT [facility] TCO2 Arterial 25.2 25.0 - 29.0 mmol/L 05/02/2019 1:29 PM CDT [facility] Base Excess Arterial -0.3 -2.0 - 2.0 mmol/L 05/02/2019 1:29 PM CDT [facility] Hemoglobin Arterial 13.5 13.5 - 17.5 g/dL 05/02/2019 1:29 PM CDT [facility] Oxyhemoglobin Arterial 91.7(L) 95.0 - 100.0 % 05/02/2019 1:29 PM CDT [facility] Carboxyhemoglobin 0.7 0.0 - 3.0 % 05/02/2019 1:29 PM CDT [facility] Methemoglobin 0.8 0.0 - 2.0 % 05/02/2019 1:29 PM CDT [facility] FI O2 Arterial 0.2 % 05/02/2019 1:29 PM CDT [facility] Blood, arterial ARTERIAL BLOOD SPECIMEN / Unknown Arterial Puncture / Unknown 05/02/2019 11:04 AM CDT 05/02/2019 1:25 PM CDT Narrative [facility] - 05/02/2019 1:29 PM CDT [facility] CLIA # [id number] [address] [place] [address] Gmat Tutor: Estelita Lainez M.D. Tomym Corrigan MD LAB - BLOOD GASES OR DERABLES [facility] * SHUTTLE WALK TEST (05/02/2019 11:00 AM CDT) Jose Moreno MD - 05/02/2019 11:00 AM CDT [facility] DEPARTMENT OF PULMONARY, CRITICAL CARE, AND SLEEP MEDICINE Shuttle Walk Test Armin Khan Lazaro 05/02/2019 Interpretation: The shuttle walk test was performed on room air and the speed of the walk was increased per the protocol. At the baseline the reported dyspnea on the Nik scale was 3 and the spO2 94%. The patient was able to walk 260 meters. The procedure was concluded when the patient was fatigued and missed 2 shuttles. Please see technologist's comments for further details. At the end of the test the reported dyspnea on the Nik scale was 4 and the spO2 90%. IMPRESSION: 1. The Shuttle Walk Test was abnormal. 2. The patient was able to walk 260 meters, which is less the minimum distance of 400 meters. 3. The patient was only able to reach 63% of their predicted HR max. Thomas Soto MD I have personally reviewed the fellow's interpretation of the test and made any necessary changes when needed. Jose Banegas MD Assistant Professor Of Sociology of Internal Medicine Division of Pulmonary, Critical Care and Sleep Medicine [facility] Pager: [phone] Narrative Jose Banegas MD - 05/02/2019 11:00 AM CDT Thomas Soto MD 05/02/2019 3:58 PM Procedure Note Thomas Soto MD - 05/02/2019 11:00 AM CDT Images from the original note were not included. Tommy Corrigan MD PFT ORDERABLES * COMPLETE PFT W/WO BRONCHODILATOR (05/02/2019 11:00 AM CDT) Impressions Jose Banegas MD - 05/02/2019 11:00 AM CDT [facility] DEPARTMENT OF PULMONARY, CRITICAL CARE, AND SLEEP MEDICINE PULMONARY FUNCTION TEST Please see technologist's comments mentioned in the report. INTERPRETATION: SPIROMETRY: FVC: normal FEV1: decreased FEV1/FVC ratio is decreased. BRONCHODILATOR RESPONSE: There is a positive response to bronchodilators FLOW-VOLUME LOOPS: small flow-volume loops LUNG VOLUMES: Residual volumes by body plethysmography is increased DLCO: Unadjusted for Hb and COHb is decreased DLCO: Corrected for Hb and COHb is: normal AIRWAY RESISTANCE: The airway resistance is normal and the specific conductance is decreased ARTERIAL BLOOD GAS ANALYSIS: drawn on Room Air decreased oxygenation normal acid-base balance IMPRESSION: 1. Moderate Obstructive Ventilatory Limitation 2. There is evidence of air trapping without hyperinflation. 3. There is a positive bronchodilator response 4. There is no previous study available for comparison Linnette Soto MD (Fellow) Division of Pulmonary, Critical Care, & Sleep Medicine [facility] I have personally reviewed the fellow's interpretation of the test and made any necessary changes when needed. Jose Banegas MD Assistant Professor Of Sociology of Internal Medicine Division of Pulmonary, Critical Care and Sleep Medicine [facility] Pager: [phone] Narrative Jose Banegas MD - 05/02/2019 11:00 AM CDT Thomas Soto MD 05/02/2019 3:50 PM Procedure Note Thomas Soto MD - 05/02/2019 11:00 AM CDT Images from the original note were not included. Tommy Corrigan MD RESPIRATORY THERAPY ORDERABLES * XR CHEST 2VW INSPIR EXPIRATION (04/17/2019 2:57 PM HVAC JOURNEYMAN) Only the most recent of3 resultswithin the time period is included. Anatomical Region Laterality Modality Chest Radiographic Beverly ging 04/17/2019 3:19 PM HVAC JOURNEYMAN Impressions 04/17/2019 4:11 PM HVAC JOURNEYMAN FINDINGS/IMPRESSION: Redemonstrated small to moderate right pneumothorax, stable versus slightly worsened compared to prior. Mild right basilar atelectasis versus airspace disease. There is no pleural effusion. The cardiomediastinal silhouette is normal. Preliminary results were discussed with Candice Ga APRN by Dr. Arroyo 04/17/2019 at 04:00 PM. Dictated by Josué Arroyo MD (president sales and marketing). This report was approved by Josué Arroyo on 04/17/2019 4:05 PM . I, . Dr. DILSHAD HARRIS MD have personally reviewed and interpreted this examination/study. This report was electronically signed by Dr. DILSHAD HARRIS MD on 04/17/2019 4:11 PM . Narrative 04/17/2019 4:11 PM HVAC JOURNEYMAN EXAMINATION: XR CHEST 2VW INSPIR EXPIRATION, 04/17/2019 2:57 PM HISTORY: R91.8: Lung mass R91.1: Lung nodule COMPARISON: Chest x-ray 04/17/2019 12:59 PM. Procedure Note Dilshad Harris MD - 04/17/2019 EXAMINATION: XR CHEST 2VW INSPIR EXPIRATION, 04/17/2019 2:57 PM HISTORY: R91.8: Lung mass R91.1: Lung nodule COMPARISON: Chest x-ray 04/17/2019 12:59 PM. FINDINGS/IMPRESSION: Redemonstrated small to moderate right pneumothorax, stable versus slightly worsened compared to prior. Mild right basilar atelectasisversus airspace disease. There is no pleural effusion. The cardiomediastinal silhouette is normal. Preliminary results were discussed with Candice Ga APRN by Dr. Arroyo 04/17/2019 at 04:00 PM. Dictated by Josué Arroyo MD (president sales and marketing). This report was approved by Josué Arroyo on 04/17/2019 4:[address] DILSHAD MD have personally reviewed and interpretedthis examination/study. This report was electronically signed by Dr. DILSHAD HARRIS MD on 04/17/2019 4:11 PM . Cuba Barker MD DIAGNOSTIC IMAGING O RDERABLES * CT FIDUCIAL MARKER PLACE LUNG ([id number]) (04/17/2019 11:51 AM HVAC JOURNEYMAN) Anatomical Region Laterality Modality Chest, Head Computed Tomogra phy 04/17/2019 12:2 8 PM HVAC JOURNEYMAN Impressions 04/17/2019 12:39 PM HVAC JOURNEYMAN Impression: 1.Successful CT-guided core biopsy of right lower lobe lung lesion. 2.Successful CT-guided placement of 1 gold fiducial markers in the central posterior-medial aspect of the right lower lobe lung lesion, as described above. Note: The pathology report is pending at the time of this dictation. The patient will be closely monitored and followed up with chest radiographs to rule out enlarging or symptomatic pneumothorax. IDr. Cuba, performed/was present throughout the procedure and provided the moderate sedation service. Please see the nursing sedation flowsheet. This report was electronically signed by CUBA BARKER on 04/17/2019 12:39 PM . Narrative 04/17/2019 12:39 PM HVAC JOURNEYMAN History: 73-year-old male with 1.2 cm spiculated lung lesion at the right lung base referred to interventional radiology for image-guided biopsy due to suspicious nature. Biopsy was attempted at outside facility, but unsuccessful due to interval development of large pneumothorax requiring procedure . Operators: 1.Dr. Cuba Barker, Attending Physician 2.Dr. Bryanna Riggins, MS-4 Anesthesia: 1.Local anesthesia - 6 mL of 1% lidocaine 2.Intravenous conscious sedation - Versed 3 mg and Fentanyl 150 mcg Procedure: 1.Limited non-contrast CT of the chest. 2.CT-guided biopsy of right lower lobe spiculated lesion. 3.CT-guided placement 1 gold fiducial markers (0.8 x 3 mm) at the posterior medial aspect of the 12 mm right lower lobe lung lesion. 4.Post-procedure limited non-contrast CT of the chest. Start time: 1056 End time: 1145 Sedation initiated time: 1056 Procedure in detail: The procedure, risks, and possible complications were explained to the patient in detail, and informed consent was obtained. The patient was placed in a RPO position on the CT table and a limited non-contrast CT examination of chest was performed with radio-opaque grid markers over the region of interest. The study demonstrated lung nodule of interest at the right lung base. Percutaneous site was chosen to access the nodule using caudal-cranial angulation to clear overlying rib. Entry site was marked on the skin with indelible ink. The patient received intravenous Versed and Fentanyl for conscious sedation. A qualified radiology nurse monitored the patients vital signs throughout the procedure. The marked site and skin around the region of interest was prepped and draped in sterile fashion. Local anesthesia was provided with 1% Lidocaine. A 19 gauge co-axial needle system was advanced in stages under CT guidance. With the needle tip at the edge of the lesion, 4 well-formed 1.5 cm pink/white core biopsy samples with black speckles were acquired with a 20 gauge biopsy gun. The samples were sent to pathology service directly in formalin. Subsequently, using the same co-axial system, 1 (0.8 x 3 mm) markers were placed in the central posterior-medial aspect of the right lower lobe lung lesion. Final CT imaging showed small pneumothorax which had developed following coaxial needle removal. Size appeared similar following three-minute delay. Patient endorsed no shortness of breath or chest pain, and due to saturations remained at baseline. Patient was repositioned to biopsy side down, and placed on O2 nasal cannula. The patient tolerated the procedure well and was transferred to the holding area in stable condition. Procedure Note Cuba Barker MD - 04/17/2019 History: 73-year-old male with 1.2 cm spiculated lung lesion at [facility] referred to interventional radiology for image-guided biopsydue to suspicious nature. Biopsy was attempted at outside facility, but unsuccessful due to interval development of large pneumothorax requiring procedure . Operators: 1.Dr. Cuba Barker, Attending Physician 2.Dr. Bryanna Riggins, MS-4 Anesthesia: 1.Local anesthesia - 6 mL of 1% lidocaine 2.Intravenous conscious sedation - Versed 3 mg and Fentanyl 150 mcg Procedure: 1.Limited non-contrast CT of the chest. 2.CT-guided biopsy of right lower lobe spiculated lesion. 3.CT-guided placement 1 gold fiducial markers (0.8 x 3 mm) at the posterior medial aspect of the 12 mm right lower lobe lung lesion. 4.Post-procedure limited non-contrast CT of the chest. Start time: 1056 End time: 1145 Sedation initiated time: 1056 Procedure in detail: The procedure, risks, and possible complications were explained to the patient in detail, and informed consent was obtained. The patient was placed in a RPO position on the CT table and a limited non-contrast CT examination of chest was performed with radio-opaque grid markers overthe region of interest. The study demonstrated lung nodule of interest atthe right lung base. Percutaneous site was chosen to access the nodule using caudal-cranial angulation to clear overlying rib. Entry site was markedon the skin with indelible ink. The patient received intravenous Versed and Fentanyl for conscious sedation. A qualified radiology nurse monitored the patients vital signs throughout the procedure. The marked site and skin around the region of interest was prepped and draped in sterile fashion. Local anesthesia was provided with 1% Lidocaine. A 19 gauge co-axial needle system was advanced in stagesunder CT guidance. With the needle tip at the edge of the lesion, 4well-formed 1.5 cm pink/white core biopsy samples with black speckles were acquired with a 20 gauge biopsy gun. The samples were sent to pathology service directly in formalin. Subsequently, using the same co-axial system, 1 (0.8 x 3 mm) markerswere placed in the central posterior-medial aspect of the right lower lobelung lesion. Final CT imaging showed small pneumothorax which had developed following coaxial needle removal. Size appeared similar following three-minute delay. Patient endorsed no shortness of breath or chest pain, and due to saturations remained at baseline. Patient was repositioned to biopsyside down, and placed on O2 nasal cannula. The patient tolerated theprocedure well and was transferred to the holding area in stable condition. Impression: 1.Successful CT-guided core biopsy of right lower lobe lung lesion. 2.Successful CT-guided placement of 1 gold fiducial markers in thecentral posterior-medial aspect of the right lower lobe lung lesion, asdescribed above. Note: The pathology report is pending at the time of this dictation. The patient will be closely monitored and followed up with chest radiographs to rule out enlarging or symptomatic pneumothorax. Dr. Cuba Garcia, performed/was present throughout the procedure and provided the moderate sedation service. Please see the nursing sedation flowsheet. This report was electronically signed by CUBA BARKER on 04/17/2019 12:39PM . Tommy Corrigan MD CT ORDERABLES * CT GUIDED NEEDLE BIOPSY LUNG ([id number]) (04/17/2019 11:39 AM [facility]NEY[facility]) Anatomical Region Laterality Modality Abdomen Computed Tomogra phy 04/17/2019 12:2 8 PM [facility]NEY[facility] Impressions 04/17/2019 12:39 PM [facility]NEY[facility] Impression: 1.Successful CT-guided core biopsy of right lower lobe lung lesion. 2.Successful CT-guided placement of 1 gold fiducial markers in the central posterior-medial aspect of the right lower lobe lung lesion, as described above. Note: The pathology report is pending at the time of this dictation. The patient will be closely monitored and followed up with chest radiographs to rule out enlarging or symptomatic pneumothorax. Dr. Cuba Garcia, performed/was present throughout the procedure and provided the moderate sedation service. Please see the nursing sedation flowsheet. This report was electronically signed by CUBA BARKER on 04/17/2019 12:39 PM . Narrative 04/17/2019 12:39 PM [facility] History: 73-year-old male with 1.2 cm spiculated lung lesion at the right lung base referred to interventional radiology for image-guided biopsy due to suspicious nature. Biopsy was attempted at outside facility, but unsuccessful due to interval development of large pneumothorax requiring procedure . Operators: 1.Dr. Cuba Barker, Attending Physician 2.Dr. Bryanna Riggins, MS-4 Anesthesia: 1.Local anesthesia - 6 mL of 1% lidocaine 2.Intravenous conscious sedation - Versed 3 mg and Fentanyl 150 mcg Procedure: 1.Limited non-contrast CT of the chest. 2.CT-guided biopsy of right lower lobe spiculated lesion. 3.CT-guided placement 1 gold fiducial markers (0.8 x 3 mm) at the posterior medial aspect of the 12 mm right lower lobe lung lesion. 4.Post-procedure limited non-contrast CT of the chest. Start time: 1056 End time: 1145 Sedation initiated time: 1056 Procedure in detail: The procedure, risks, and possible complications were explained to the patient in detail, and informed consent was obtained. The patient was placed in a RPO position on the CT table and a limited non-contrast CT examination of chest was performed with radio-opaque grid markers over the region of interest. The study demonstrated lung nodule of interest at the right lung base. Percutaneous site was chosen to access the nodule using caudal-cranial angulation to clear overlying rib. Entry site was marked on the skin with indelible ink. The patient received intravenous Versed and Fentanyl for conscious sedation. A qualified radiology nurse monitored the patients vital signs throughout the procedure. The marked site and skin around the region of interest was prepped and draped in sterile fashion. Local anesthesia was provided with 1% Lidocaine. A 19 gauge co-axial needle system was advanced in stages under CT guidance. With the needle tip at the edge of the lesion, 4 well-formed 1.5 cm pink/white core biopsy samples with black speckles were acquired with a 20 gauge biopsy gun. The samples were sent to pathology service directly in formalin. Subsequently, using the same co-axial system, 1 (0.8 x 3 mm) markers were placed in the central posterior-medial aspect of the right lower lobe lung lesion. Final CT imaging showed small pneumothorax which had developed following coaxial needle removal. Size appeared similar following three-minute delay. Patient endorsed no shortness of breath or chest pain, and due to saturations remained at baseline. Patient was repositioned to biopsy side down, and placed on O2 nasal cannula. The patient tolerated the procedure well and was transferred to the holding area in stable condition. Procedure Note Cuba Barker MD - 04/17/2019 History: 73-year-old male with 1.2 cm spiculated lung lesion at [facility] referred to interventional radiology for image-guided biopsydue to suspicious nature. Biopsy was attempted at outside facility, but unsuccessful due to interval development of large pneumothorax requiring procedure . Operators: 1.Dr. Cuba Barker, Attending Physician 2.Dr. Bryanna Riggins, MS-4 Anesthesia: 1.Local anesthesia - 6 mL of 1% lidocaine 2.Intravenous conscious sedation - Versed 3 mg and Fentanyl 150 mcg Procedure: 1.Limited non-contrast CT of the chest. 2.CT-guided biopsy of right lower lobe spiculated lesion. 3.CT-guided placement 1 gold fiducial markers (0.8 x 3 mm) at the posterior medial aspect of the 12 mm right lower lobe lung lesion. 4.Post-procedure limited non-contrast CT of the chest. Start time: 1056 End time: 1145 Sedation initiated time: 1056 Procedure in detail: The procedure, risks, and possible complications were explained to the patient in detail, and informed consent was obtained. The patient was placed in a RPO position on the CT table and a limited non-contrast CT examination of chest was performed with radio-opaque grid markers overthe region of interest. The study demonstrated lung nodule of interest atthe right lung base. Percutaneous site was chosen to access the nodule using caudal-cranial angulation to clear overlying rib. Entry site was markedon the skin with indelible ink. The patient received intravenous Versed and Fentanyl for conscious sedation. A qualified radiology nurse monitored the patients vital signs throughout the procedure. The marked site and skin around the region of interest was prepped and draped in sterile fashion. Local anesthesia was provided with 1% Lidocaine. A 19 gauge co-axial needle system was advanced in stagesunder CT guidance. With the needle tip at the edge of the lesion, 4well-formed 1.5 cm pink/white core biopsy samples with black speckles were acquired with a 20 gauge biopsy gun. The samples were sent to pathology service directly in formalin. Subsequently, using the same co-axial system, 1 (0.8 x 3 mm) markerswere placed in the central posterior-medial aspect of the right lower lobelung lesion. Final CT imaging showed small pneumothorax which had developed following coaxial needle removal. Size appeared similar following three-minute delay. Patient endorsed no shortness of breath or chest pain, and due to saturations remained at baseline. Patient was repositioned to biopsyside down, and placed on O2 nasal cannula. The patient tolerated theprocedure well and was transferred to the holding area in stable condition. Impression: 1.Successful CT-guided core biopsy of right lower lobe lung lesion. 2.Successful CT-guided placement of 1 gold fiducial markers in thecentral posterior-medial aspect of the right lower lobe lung lesion, asdescribed above. Note: The pathology report is pending at the time of this dictation. The patient will be closely monitored and followed up with chest radiographs to rule out enlarging or symptomatic pneumothorax. I, Dr. Cuba Barker, performed/was present throughout the procedure and provided the moderate sedation service. Please see the nursing sedation flowsheet. This report was electronically signed by CUBA BARKER on 04/17/2019 12:39PM . Tommy Corrigan MD CT ORDERABLES * PATHOLOGY TISSUE (04/17/2019 11:32 AM [facility]OURNEYMAN) Case Report Surgical Pathology Report Case: [id number] Authorizing Provider: Tommy Corrigan MD Collected: 04/17/2019 11:32 AM Ordering Location: [facility] CAT SCAN Received: 04/17/2019 12:24 PM Pathologist: Mayra Trejo MD Specimen: Lung, Right Lower Lobe 04/19/2019 11:05 AM [facility] Final Diagnosis Lung, right lower lobe, biopsy (A): - Non-small cell carcinoma, consistent with adenocarcinoma - Sufficient tumor cells present for molecular tests if clinically indicated 04/19/2019 11:05 AM [facility] Microscopic Description and Comment There are poorly differentiated areas and some areas show tumor forming glandular structures. 04/19/2019 11:05 AM [facility] Clinical History The patient is a 73-year-old man who underwent biopsy of a 1.2 cm spiculated nodule in the right lower lobe. 04/19/2019 11:05 AM [facility] Gross Description The requisition and specimen(s) are labeled with the patient's name, Gustavo Willis. Received in formalin, specimen A , are multiple cordova white tissue cores measuring 0.1-0.5 cm in length, with a diameter of less than 0.1 cm. Submitted in toto in cassette A1. KK 04/19/2019 11:05 AM [facility] Disclaimer The performance characteristics of all immunohistochemical and indirect immunofluorescence stains (if any) cited in this report were determined by the Histopathology Laboratory of [facility]. Some of these tests were developed by our own laboratory and have not been cleared or approved by the US Food and Drug Administration. The FDA does not require this test to go through premarket FDA review. These tests are used for clinical purposes. They should not be regarded as investigational or for research. This laboratory is certified under the Clinical Laboratory Improvement Amendments (CLIA) as qualified to perform high complexity clinical laboratory testing. This case has been personally reviewed and interpreted by the attending (teaching) pathologist. 04/19/2019 11:05 AM [facility] Embedded Images 04/19/2019 11:05 AM [facility] Biopsy, Excision (Lung, Right Lower Lobe) 04/17/2019 11:32 AM [facility] 04/17/2019 12:24 PM [facility] Tommy Corrigan MD LAB - PATHOLOGY/CYTO LOGY ORDERABLES Performing Organization Address City/State/[facility] Co de Phone Number [facility] [address] [phone] * PT-INR [facility] (04/17/2019 9:17 AM [facility] JOURNEYMAN) PT 12.9 12.1 - 14.8 Seconds 04/17/2019 9:45 AM [facility] INR 1.0 See Comment 04/17/2019 9:45 AM [facility] Comment:The suggested therap eutic range for standard coumadin (warfarin) therapy is an INR of 2.0-3.0. For high-risk patients (Mechanical Mitral Valve Prosthesis, etc.), the suggested prophylactic therapeutic range is an INR of 2.5-3.5. Blood BLOOD SPECIMEN / Unknown Venipuncture / Unknown 04/17/2019 9:17 AM [facility] 04/17/2019 9:25 AM [facility] Tommy Corrigan MD LAB - COAGULATION OR DERABLES Performing Organization Address City/State/[facility] Co de Phone Number [facility] [address] [phone] * (ABNORMAL) CBC W AUTO DIFFERENTIAL (04/17/2019 9:17 AM [facility]) WBC 8.0 3.5 - 10.5 10 3/uL 04/17/2019 9:29 AM [facility] RBC 4.70 4.30 - 5.70 10 6/uL 04/17/2019 9:29 AM [facility] Hemoglobin 13.6 13.5 - 17.5 g/dL 04/17/2019 9:29 AM [facility] Hematocrit 42.7 39.0 - 50.0 % 04/17/2019 9:29 AM [facility] MCV 90.9 81.0 - 97.0 fL 04/17/2019 9:29 AM [facility] MCH 28.9 28.0 - 34.0 pg 04/17/2019 9:29 AM [facility] MCHC 31.9(L) 32.0 - 36.0 g/dL 04/17/2019 9:29 AM [facility] Platelet Count 325 150 - 400 10 3/uL 04/17/2019 9:29 AM [facility] RDW-SD 49.2 36.0 - 50.0 fL 04/17/2019 9:29 AM [facility] RDW-CV 14.7 11.2 - 14.8 % 04/17/2019 9:29 AM [facility] MPV 9.9 9.3 - 12.8 fL 04/17/2019 9:29 AM [facility] nRBC Absolute 0.00 0 10 3/uL 04/17/2019 9:29 AM [facility] nRBC Auto 0.0 0 /100 WBC 04/17/2019 9:29 AM [facility] Neutrophils % 67.2 35.0 - 70.0 % 04/17/2019 9:29 AM [facility] Lymphocytes % 19.0(L) 19.7 - 55.1 % 04/17/2019 9:29 AM [facility] Monocytes % 10.8 3.0 - 15.0 % 04/17/2019 9:29 AM [facility] Eosinophils % 2.1 0.0 - 6.0 % 04/17/2019 9:29 AM [facility] Basophil % 0.4 0.0 - 1.5 % 04/17/2019 9:29 AM [facility] Neutrophils Absolute 5.3 1.6 - 7.0 10 3/uL 04/17/2019 9:29 AM [facility] Lymphocyte Absolute 1.5 0.8 - 2.9 10 3/uL 04/17/2019 9:29 AM [facility] Monocytes Absolute 0.86(H) 0.14 - 0.66 10 3/uL 04/17/2019 9:29 AM [facility] Eosinophils Absolute 0.17 0.00 - 0.45 10 3/uL 04/17/2019 9:29 AM [facility] Basophils Absolute 0.03 0.00 - 0.06 10 3/uL 04/17/2019 9:29 AM [facility] Immature Granulocytes % 0.5 0.0 - 1.0 % 04/17/2019 9:29 AM [facility] Blood BLOOD SPECIMEN / Unknown Venipuncture / Unknown 04/17/2019 9:17 AM [facility] 04/17/2019 9:25 AM [facility] Tommy Corrigan MD LAB - HEMATOLOGY ORD ERABLES [facility] [address] [phone] Care Teams Betting 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
[2024-04-23 14:42] VITALS: PULSE 105; RESP 18
--- NOTE | 2024-04-23 15:14 | PC.NURSE ---
Pt left prior to receiving abx. 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
[2024-04-23 15:16] VITALS: PULSE 90; RESP 20; O2SAT 95
== END 2024-04-23 15:17 | disposition home or self-care (01) ==
PROVIDERS: Emergency Medicine; Emergency Provider Emergency Medicine; PCP Emergency Medicine
DX: J40 Bronchitis, not specified as acute or chronic (principal); J18.9 Pneumonia, unspecified organism; Z20.822 Contact with and (suspected) exposure to COVID-19; I10 Essential (primary) hypertension; E78.5 Hyperlipidemia, unspecified; E11.9 Type 2 diabetes mellitus without complications; J44.9 Chronic obstructive pulmonary disease, unspecified
CPT/HCPCS: 36415; 71046; 80053; 81001; 85025; 87637; 93005; 94640; 99284; J7512

== ENCOUNTER 2024-08-12 10:07 | Outpatient (CLI) | payer OTHER, SELFPAY ==
--- NOTE | ~2024-08-12 | XR_ITS ---
XR ribs RT 2V Ordering provider: Josué Cary MD History: . R07.81 - Pleurodynia . Comparison: None. FINDINGS: BONES: Fracture of the right seventh rib is noted. LUNGS: No effusions or infiltrates. No pneumothorax. SOFT TISSUES: Normal. IMPRESSION: Fracture in the right seventh rib. Reviewed, dictated and finalized at location A.
== END 2024-08-12 10:08 | disposition home or self-care (01) ==
LOC: MICIMG 10:08
PROVIDERS: PCP Emergency Medicine; Visit Provider Emergency Medicine
DX: S22.31XA Fracture of one rib, right side, initial encounter for closed fracture (principal); X58.XXXA Exposure to other specified factors, initial encounter
CPT/HCPCS: 71100